=== PATIENT | female | born 1990 | race Two or more races ===

== ENCOUNTER 2024-04-15 11:56 | Outpatient (CLI) | payer OTHER | END 2024-04-15 13:23 | disposition home or self-care (01) | LOC: NST 11:56 | PROVIDERS: ATTEND Obstetrics & Gynecology | DX: Z34.83 Encounter for supervision of other normal pregnancy, third trimester (principal) ==

== ENCOUNTER 2024-04-15 13:45 | Inpatient (IN) | payer OTHER ==
[~2024-04-15] VITALS: Ht 162.6 cm; Wt 78.9 kg
[2024-04-21 11:23] VITALS: BP 124/88
[2024-04-21] MEDS ORDERED: PRENATAL TABLE1 EAC1 PO (12:12)
[2024-04-21 13:11] LABS: HEMATOCRIT 40.2 % (36.0-45.00); HEMOGLOBIN 13.9 g/dL (12.0-15.00); MEAN CELL VOLUME 86.8 fL (80.00-100.00); MEAN CORPUSCULAR HEMOGLOBIN 29.9 pg (27.00-32.0); MEAN CORPUSCULAR HGB CONC 34.4 g/dl (32.0-36.0); PLATELET COUNT 147 K/uL (150-450); RED BLOOD COUNT 4.63 M/uL (4.00-6.00)
[2024-04-21] MEDS ORDERED: OXYTOCIN 500 ML IV SCH (13:15)
[2024-04-21] MEDS ORDERED: RINGERS SOLUTION,LACTATED 1,000 ML IV SCH ×2 (13:15→22:30)
[2024-04-21 13:51] LABS: INR < 0.93; PARTIAL THROMBOPLASTIN TIME 27.4 SECONDS (22.0-34.0)
[2024-04-21 14:07] LABS: PROTHROMBIN TIME 9.8 SECONDS (9.0-11.5)
[2024-04-21 14:34] LABS: ALBUMIN 2.7 gm/dL (3.4-5.0); BILIRUBIN TOTAL 0.27 mg/dL (0.3-1.2); CALCIUM 9.1 mg/dL (8.5-10.1); CREATININE SERUM 0.63 mg/dL (0.55-1.02); GFR 108.83; GLOBULINA 3.6 G/DL (2.4-3.5); POTASSIUM 4.23 mEq/L (3.5-5.1); TOTAL PROTEIN 6.3 gm/dL (6.4-8.2)
[2024-04-21 15:43] VITALS: BP 130/87
[2024-04-21] MEDS ORDERED: MORPHINE SULFATE 4 MG/ML VIAL IV ONE ×2 (17:45→20:15)
[2024-04-21 20:00] VITALS: BP 147/72
[2024-04-21] MEDS ORDERED: CEFAZOLIN SODIUM 1,000 MG VIAL IV ONE (21:45)
[2024-04-21] MEDS ORDERED: OXYTOCIN 10 UNITS/ML VIAL IV ONE (21:45)
[2024-04-21] MEDS ORDERED: ERYTHROMYCIN BASE OPHT 1GM EACH TUBE OP ONE (21:45)
[2024-04-21] MEDS ORDERED: PROMETHAZINE HCL 25 MG/ML AMPUL IV PRN (22:30)
[2024-04-21] MEDS ORDERED: MEPERIDINE HCL 25 MG/ML AMPUL IV PRN (22:30)
[2024-04-22] MEDS ORDERED: ACETAMINOPHEN 500 MG GEL..CAP PO SCH
[2024-04-22] MEDS ORDERED: ONDANSETRON HCL 2 MG/ML VIAL IV SCH
[2024-04-22] MEDS ORDERED: GABAPENTIN 300 MG CAPSULE PO SCH (01:00)
[2024-04-22] MEDS ORDERED: SIMETHICONE 125 MG CAPSULE PO SCH (01:00)
[2024-04-22 01:18] VITALS: BP 131/85
[2024-04-22] MEDS ORDERED: MEPERIDINE HCL/PF 25 MG/ML VIAL IV ONE (03:30)
[2024-04-22] MEDS ORDERED: PROMETHAZINE HCL 25 MG/ML AMPUL IV ONE (03:30)
[2024-04-22 06:38] LABS: HEMATOCRIT 36.5 % (36.0-45.00); HEMOGLOBIN 12.9 g/dL (12.0-15.00); MEAN CELL VOLUME 86.4 fL (80.00-100.00); MEAN CORPUSCULAR HEMOGLOBIN 30.5 pg (27.00-32.0); MEAN CORPUSCULAR HGB CONC 35.3 g/dl (32.0-36.0); RED BLOOD COUNT 4.22 M/uL (4.00-6.00); RED CELL DISTRIBUTION WIDTH 13.1 % (11.5-14.5)
[2024-04-22 07:00] LABS: PLATELET COUNT 119 K/uL (150-450)
[2024-04-22] MEDS ORDERED: OxyCODONE HCL 5 MG TABLET (ROXICODONE) PO PRN (08:00)
[2024-04-22 08:08] VITALS: BP 124/75
[2024-04-22] MEDS ORDERED: DOCUSATE SODIUM 100MG CAP PO SCH (09:00)
[2024-04-22] MEDS ORDERED: ACETAMINOPHEN 325 MG TABLET PO SCH (12:00)
[2024-04-23 00:41] VITALS: BP 125/86
[2024-04-23] MEDS ORDERED: OxyCODONE HCL 5 MG TABLET (ROXICODONE) PO PRN (06:00)
[2024-04-23 08:10] VITALS: BP 130/85
[2024-04-23 13:10] VITALS: BP 125/85
[2024-04-23 16:52] VITALS: BP 128/84
[2024-04-24 00:53] VITALS: BP 128/80
[2024-04-24 08:58] VITALS: BP 100/68; BP 110/72
== END 2024-04-24 15:07 | disposition home or self-care (01) | DRG 788 ==
LOC: EDUNIT# 13:45 → LDR 04-21 11:14 → O/R 04-21 21:41 → OB/GYN 04-21 22:29 → LDR 04-22 13:45 → OB/GYN 04-24 15:07
PROVIDERS: Obstetrics & Gynecology; ADMIT Obstetrics & Gynecology Gynecology; ATTEND Obstetrics & Gynecology Gynecology
PROC: 4A1HXCZ Monitoring of Products of Conception, Cardiac Rate, External Approach (ICD-10-PCS; 2024-04-21)
PROC: 10D00Z1 Extraction of Products of Conception, Low, Open Approach (ICD-10-PCS; principal; 2024-04-21 21:00)
DX: O82 Encounter for cesarean delivery without indication (principal); O62.0 Primary inadequate contractions; Z3A.39 39 weeks gestation of pregnancy; Z37.0 Single live birth; Z20.822 Contact with and (suspected) exposure to COVID-19

== ENCOUNTER 2024-04-19 18:50 | Outpatient (CLI) | payer OTHER ==
[2024-04-19 17:23] VITALS: BP 114/77
[2024-04-19 17:30] VITALS: BP 114/77
[2024-04-19 19:03] VITALS: BP 124/73
[2024-04-20 03:38] VITALS: BP 90/55
[2024-04-21] MEDS ORDERED: PRENATAL TABLE1 EAC1 PO (12:12)
== END 2024-04-20 03:38 | disposition home or self-care (01) ==
LOC: OBS/DEL 18:50 → LDR 18:54 → OBS/DEL 18:55
PROVIDERS: ATTEND Obstetrics & Gynecology Maternal & Fetal Medicine
DX: O36.8130 Decreased fetal movements, third trimester, not applicable or unspecified (principal); Z3A.40 40 weeks gestation of pregnancy